=== PATIENT | female | born 1995 | race Caucasian/White ===

== ENCOUNTER → 2017-04-01 | Outpatient (CLI) | payer OTHER ==
[~2017-04-01] MED LIST: VITAMIN D1000 UNI1 PO
== END ==
LOC: RAD 14:55
DX: K59.00 Constipation, unspecified (principal); R19.8 Other specified symptoms and signs involving the digestive system and abdomen

== ENCOUNTER → 2017-04-28 | Outpatient (CLI) | payer OTHER ==
[~2017-04-28] MED LIST changes: +KETOCONAZOLE15 GM TOP
== END ==
LOC: ULTRA 04-27 15:00
DX: N83.9 Noninflammatory disorder of ovary, fallopian tube and broad ligament, unspecified (principal); K62.89 Other specified diseases of anus and rectum

== ENCOUNTER → 2017-05-12 | Outpatient (CLI) | payer OTHER | LOC: ULTRA | DX: N63.10 Unspecified lump in the right breast, unspecified quadrant (principal) ==

== ENCOUNTER → 2017-07-22 | Outpatient (CLI) | payer OTHER ==
[~2017-07-22] VITALS: Ht 172.7 cm; Wt 65.8 kg
--- NOTE | ~2017-07-22 | P ---
[facility] [place] [address] PROCEDURE REPORT Name: RIVAS RUIZ Room #: REG [facility]#: [id number] Admission: 07/22/17 Attend Phys: Kelechi Silveira MD Discharge: Date of : 89 Report #: [id number] THIS REPORT FOR: //name// CC: Kelechi Landers MD PhD Duane Morgan MD BRIEF HISTORY: The patient is a 22-year-old woman who had recently been seen in the office with complaints of dysphagia, also rash and she is concerned she has celiac disease. She also has had bouts of diarrhea. She has had intermittent solid food dysphagia. PREOPERATIVE DIAGNOSES: Dysphagia, diarrhea and rash. POSTOPERATIVE DIAGNOSIS: Mild diffuse gastritis. MEDICATIONS: Deep sedation with propofol per anesthesia. SPECIMENS: 1. Small-bowel biopsies to rule out celiac disease. 2. Biopsies of gastritis. 3. Biopsies of esophagus, rule out eosinophilic esophagitis. ESTIMATED BLOOD LOSS: 3 mL. PROCEDURE: EGD with biopsy. FINDINGS: Prior to propofol sedation, the procedure of upper endoscopy and potential dilation was discussed with the patient as well as potential risks, benefits, and complications. She indicates she understands and desires to proceed. With the patient in left lateral decubitus position, the Fuji video endoscope was inserted in the cervical esophagus under direct vision without difficulty. Examination of this organ through its entire length revealed normal esophageal mucosa down to the squamocolumnar junction. I did not see a stricture or mass lesion. The mucosa was intact. There are no ulcers or erosions. I did not see typical features of eosinophilic esophagitis, but nonetheless, due to symptoms, biopsies were obtained. The scope was advanced in the stomach, was examined on end view as well as retroflexed views. There was linear erythema in the antrum of the stomach and extending into the body. No ulcers were seen. There was no evidence of outlet obstruction. There were no retained solids or liquids in the stomach. Upon retroflexion, no additional abnormalities were seen. No masses were seen in the cardia. A significant hiatus hernia was not seen. Biopsies obtained of the gastritis. The pylorus was normal. Duodenal bulb was normal. Duodenal sweep down third portion was normal. Duodenal papilla was identified [address] [address] PROCEDURE REPORT Name: RIVAS RUIZ Room #: REG [facility] Jessica.#: [id number] Admission: 07/22/17 Attend Phys: Kelechi Silveira MD Discharge: Date of : 89 Report #: [id number] and noted to be unremarkable. Small-bowel biopsies were obtained as well. At that point, the scope was slowly withdrawn and careful circumferential views confirmed the above findings. The patient tolerated the procedure well. DISPOSITION: The patient reports her dysphagia is actually better, so since an obvious lesion was not seen, she was not dilated. We will follow up on biopsies and make further recommendations. At this point in time, we will proceed with colonoscopy. <ELECTRONICALLY SIGNED> By: Kelechi Silveira MD 07/26/17 1639 [id number] Kelechi Silveira MD /nt
--- NOTE | ~2017-07-22 | P ---
[facility] [place] [address] PROCEDURE REPORT Name: RIVAS RUIZ Room #: REG [facility]#: [id number] Admission: 07/22/17 Attend Phys: Kelechi Silveira MD Discharge: Date of : 89 Report #: [id number] THIS REPORT FOR: //name// CC: Kelechi Landers MD PhD Duane Morgan MD BRIEF HISTORY: The patient is a 22-year-old woman who has had a change in bowel habits. She reports periods of diarrhea and also periods of constipation. In addition, she did a self digital examination and thought she felt a mass in her rectum. 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 PREOPERATIVE DIAGNOSIS: Change in bowel habits. POSTOPERATIVE DIAGNOSIS: Normal colonoscopy and terminal ileum. MEDICATIONS: Deep sedation with propofol per anesthesia. SPECIMEN: Random biopsies of the colon, rule out colitis. ESTIMATED BLOOD LOSS: 3 mL. PROCEDURE: Colonoscopy to cecum and terminal ileum with biopsy. FINDINGS: Prior to propofol sedation, the procedure of colonoscopy discussed with the patient as well as potential risks, benefits, and complications. She indicates she understands and desires to proceed. With the patient in left lateral decubitus position, digital examination was completed, which revealed no abnormalities. Subsequently, the [employer] video colonoscope was introduced rectally and advanced under direct vision to the cecum. Done with minimal difficulty. The cecum was identified by the ileocecal valve and the appendiceal orifice. I was able to visualize the distal segment of terminal ileum, which was inspected and noted to be unremarkable. At that point, the scope was slowly withdrawn and careful circumferential views obtained including retroflexing the scope in the ascending colon. Upon slow withdrawal of the scope, the prep was excellent. The mucosa was within normal limits, normal vascular pattern, normal light reflex. The mucosa was normal throughout. No polyp, no neoplastic lesions were seen. No inflammatory changes were seen. Obstructing lesions were not seen. She had a normal endoscopic evaluation of the entire colon. Due to her bouts of diarrhea, multiple biopsies were obtained to evaluate for microscopic colitis. Scope was withdrawn in the rectum. Upon retroflexion, no abnormalities were seen. I also might emphasize on digital rectal examination, no masses were noted. Scope was withdrawn on the rectum. Upon retroflexion, no abnormalities were seen. Scope was withdrawn. The patient tolerated the procedure well. [address] [address] PROCEDURE REPORT Name: RIVAS RUIZ Room #: REG [facility] Wen#: [id number] Admission: 07/22/17 Attend Phys: Kelechi Silveira MD Discharge: Date of : 89 Report #: [id number] CONDITION OF THE PATIENT UPON DISCHARGE: Following procedure, the patient drowsy, arousable and conversant and will be discharged to home when fully ambulatory. INSTRUCTIONS TO THE PATIENT AND FAMILY AT THE TIME OF DISCHARGE: No mucosal lesions were seen. She had a normal endoscopic examination of the colon. Due to irregular bowel habits, we suggest fiber supplementation. We will follow up on biopsies and make further recommendations. Ultimately, if she continues to have symptoms, she should return to the office for followup. She return to care of her primary physician, Dr. Duane Morgan and return to see me as needed. Withdrawal time from cecum was 9 minutes 54 seconds. <ELECTRONICALLY SIGNED> By: Kelechi Silveira MD 07/26/17 1639 [id number] Kelechi Silveira MD /nt
== END | disposition home or self-care (01) ==
LOC: GI 05-28 09:00
DX: K51.90 Ulcerative colitis, unspecified, without complications (principal); K29.50 Unspecified chronic gastritis without bleeding; K21.0 Gastro-esophageal reflux disease with esophagitis; Z98.890 Other specified postprocedural states; Z88.0 Allergy status to penicillin; Z79.899 Other long term (current) drug therapy
CPT/HCPCS: 62110; 62900

== ENCOUNTER → 2017-09-27 | Outpatient (CLI) | payer OTHER | LOC: ULTRA 08:07 | DX: R10.9 Unspecified abdominal pain (principal) ==

== ENCOUNTER → 2017-09-29 | Outpatient (CLI) | payer OTHER | LOC: ULTRA 08:21 | DX: N83.201 Unspecified ovarian cyst, right side (principal) ==

== ENCOUNTER → 2017-12-27 | Outpatient (CLI) | payer OTHER | LOC: CAT 08:27 | DX: D27.0 Benign neoplasm of right ovary (principal); N94.6 Dysmenorrhea, unspecified; N94.9 Unspecified condition associated with female genital organs and menstrual cycle ==